=== PATIENT | female | born 1955 | race Two or more races ===

== ENCOUNTER 2018-09-04 14:15 | Emergency (ER) | payer OTHER ==
[~2018-09-04] VITALS: Ht 160 cm; Wt 88.5 kg
[~2018-09-04 14:15] MED LIST: ENALAPRIL MALEA20 MG
[2018-09-04] MEDS ORDERED: NORVASC10 MG (14:35)
[2018-09-04] MEDS ORDERED: LISINOPRIL40 MG (14:35)
== END 2018-09-04 18:16 | disposition home or self-care (01) ==
LOC: ER 14:15
DX: J11.1 Influenza due to unidentified influenza virus with other respiratory manifestations (principal)

== ENCOUNTER 2020-02-23 16:49 | Emergency (ER) | payer OTHER ==
[~2020-02-23] VITALS: Ht 160 cm; Wt 77.1 kg
[~2020-02-23 16:49] MED LIST changes: +LISINOPRIL40 MG; +NORVASC10 MG
[2020-02-23] MEDS ORDERED: LASIX20 MG (17:06)
[2020-02-23] MEDS ORDERED: ALDACTONE50 MG (17:07)
== END 2020-02-23 22:52 | disposition home or self-care (01) ==
LOC: ER 16:49
DX: K59.09 Other constipation (principal); K76.89 Other specified diseases of liver; R18.8 Other ascites; K80.80 Other cholelithiasis without obstruction; Z85.05 Personal history of malignant neoplasm of liver; Z03.818 Encounter for observation for suspected exposure to other biological agents ruled out